=== PATIENT | female | born 1980 | race Hispanic/Latino ===

== ENCOUNTER 2021-11-18 15:57 | Day surgery (SDC) | payer OTHER ==
[2021-11-18 18:02] VITALS: BMI 25.6
[2021-11-18] MEDS ORDERED: hydrALAZINE 20 MG/ML VIAL SLOW IVP PRN (18:04)
[2021-11-18 18:13] LABS: Bilirubin Neg (Negative); Blood, Urine Negative (Negative); Clarity Clear (Clear); Glucose, Urine (Dipstick) Normal (Negative); Ketone, Urine 50 mg/dL (Negative); Leukocyte Negative (Negative); Nitrite Negative (Negative); Protein, Urine (Dipstick) Negative (Neg-Trace); Specific Gravity, Urine 1.015 (1.002-1.036); Urobilinogen Normal mg/dL (Less than 2)
[2021-11-18 18:23] LABS: Bacteria/HPF 1+ HPF (None Seen); Mucous/LPF 1+ LPF (<2+); RBC/HPF None Seen HPF (0-3); Squamous Epithelial 0-3 HPF (0-3); WBC/HPF 0-3 HPF (0-3)
== END 2021-11-18 19:10 | disposition home or self-care (01) ==
LOC: CSHLD/OP 15:57
PROVIDERS: ATTEND Obstetrics & Gynecology
DX: O99.891 Other specified diseases and conditions complicating pregnancy (principal); R35.0 Frequency of micturition; R30.0 Dysuria; R10.819 Abdominal tenderness, unspecified site; O09.522 Supervision of elderly multigravida, second trimester; O26.892 Other specified pregnancy related conditions, second trimester; L29.3 Anogenital pruritus, unspecified; Z3A.22 22 weeks gestation of pregnancy; Z88.0 Allergy status to penicillin
CPT/HCPCS: 81001; 87480; 87510; 87660

== ENCOUNTER 2022-02-25 20:16 | Inpatient (IN) | payer OTHER ==
[~2022-02-25 20:16] MED LIST: Bupivacaine/Epinephrine 0.25% 30 ML VIAL ONE; ePHEDrine Sulfate 50 MG/10 ML VIAL ONE
[2022-02-25 20:43] VITALS: BMI 28.7
[2022-02-25] MEDS ORDERED: hydrALAZINE 20 MG/ML VIAL SLOW IVP PRN ×4 (21:13→21:43)
[2022-02-25] MEDS ORDERED: Magnesium Sulfate 20 gm/500 ml 20 GM/500 ML BAG ONE (21:38)
[2022-02-25] MEDS ORDERED: Calcium Gluc 4.6 MEQ/10 ML (100 MG/ML) SLOW IVP PRN (21:43)
[2022-02-25] MEDS ORDERED: Lorazepam 2 MG/ML VIAL SLOW IVP PRN (21:43)
[2022-02-25] MEDS ORDERED: Promethazine HCl 25 MG/ML VIAL IM PRN (21:43)
[2022-02-25] MEDS ORDERED: Labetalol HCl 100 MG/20 ML VIAL SLOW IVP PRN ×2 (21:43)
[2022-02-25] MEDS ORDERED: Ondansetron PF 4 MG/2 ML Vial IVP PRN (21:43)
[2022-02-25] MEDS ORDERED: Ibuprofen 800 MG TAB PO PRN (21:43)
[2022-02-25] MEDS ORDERED: Butorphanol Tartrate 1 MG/ML VIAL SLOW IVP PRN (21:43)
[2022-02-25] MEDS ORDERED: Lidocaine 1% (PF) 30 ML VIAL SC PRN (21:43)
[2022-02-25] MEDS ORDERED: HYDROcodone/Acetaminophen 5/325 mg Tablet PO PRN ×2 (21:43)
[2022-02-25] MEDS ORDERED: Acetaminophen 500 MG TAB PO PRN (21:43)
[2022-02-25] MEDS ORDERED: hydrALAZINE 20 MG/ML VIAL ONE (21:56)
[2022-02-25] MEDS ORDERED: NS w/ Oxytocin 30 units 500 ML IV SCH ×2 (22:15)
[2022-02-25] MEDS ORDERED: Magnesium Sulfate 20 gm/500 ml 20 GM/500 ML BAG IVPB SCH (22:15)
[2022-02-25 22:30] LABS: Hemoglobin 11.7 g/dL (12.0-15.5); Mean Corpuscular HGB CONC 33.1 g/dL (32.0-36.0); Mean Corpuscular Hemoglobin 29.2 pg (27.0-33.0); Mean Corpuscular Volume 88.3 fl (81.6-98.3); Mean Platelet Volume 11.7 fl (7.4-10.4); Platelet Count 267 10x3/uL (150-450); RBC Distribution Width 12.9 % (11.5-14.5); Red Blood Cell (RBC) Count 4.01 10x6/uL (3.90-5.03); White Blood Cell (WBC) Count 10.4 10x3/uL (3.5-10.5)
[2022-02-25 22:43] LABS: ALT (SGPT) 12 U/L (8-55); AST (SGOT) 20 U/L (5-34); Albumin 3.5 g/dL (3.5-5.0); Alkaline Phosphatase 130 U/L (40-110); Anion Gap 15 mmol/L (10-20); BUN (Urea Nitrogen) 9 mg/dL (7.0-18.7); Bilirubin, Total 0.5 mg/dL (0.2-1.2); Calc. Creatinine Clearance 136 mL/min (70-130); Calcium 9.4 mg/dL (7.8-10.44); Carbon Dioxide 21 mmol/L (22-29); Chloride 105 mmol/L (98-107); Glucose 82 mg/dL (70-105); Protein, Total 6.5 g/dL (6.0-8.3); Sodium 137 mmol/L (136-145)
[2022-02-25 23:00] LABS: Hep B Surf Ag Non-Reactive S/CO (NonReactive); Syphilis Antibody Nonreactive (Nonreactive); Syphilis Antibody Index 0.06 S/CO (<1.00 Non-Reactive)
[2022-02-25 23:03] LABS: HBSAg Index 0.13 S/CO (0-0.99)
[2022-02-26] MEDS ORDERED: Dexamethasone 4 mg/ml Vial IM SCH (00:15)
[2022-02-26] MEDS: Betamet Acet/Betamet Na Ph 30 MG/5 ML VIAL IM SCH (01:01)
[2022-02-26] MEDS: CEFAZOLIN 1 GM in Sodium Chloride 0.9% 100 ML IVPB SCH ×2 (01:01→08:39)
[2022-02-26] MEDS: Misoprostol 100 MCG TAB VAG SCH ×2 (01:21→04:46)
[2022-02-26 02:39] LABS: SARS-CoV-2 NAA Rapid Test Not Detected (NotDetected)
[2022-02-26] MEDS ORDERED: Fentanyl 2 mcg/Bup 0.1% Cadd 100 ML ONE (03:08)
[2022-02-26] MEDS ORDERED: diphenhydrAMINE 50 MG/ML VIAL IVP PRN ×3 (03:58→19:23)
[2022-02-26] MEDS ORDERED: Ondansetron PF 4 MG/2 ML Vial IVP PRN ×3 (03:58→19:17)
[2022-02-26] MEDS ORDERED: Moisturizing Cream (Eucerin) 113 GM JAR TOP PRN (03:58)
[2022-02-26] MEDS ORDERED: Promethazine HCl 25 MG/ML VIAL IM PRN ×3 (03:58→19:23)
[2022-02-26] MEDS ORDERED: ePHEDrine Sulfate 50 MG/10 ML VIAL SLOW IVP PRN (03:58)
[2022-02-26] MEDS ORDERED: Naloxone HCl 0.4 mg/ml Vial IVP PRN ×2 (03:58)
[2022-02-26] MEDS ORDERED: Lactated Ringer's 500 ML IV PRN (03:58)
[2022-02-26] MEDS ORDERED: Fentanyl 2 mcg/Bupivacaine 0.1% Cassette 100 ML EPIDURAL SCH (04:00)
[2022-02-26] MEDS ORDERED: Communication Order-Pharmacy FS SCH ×3 (04:00→19:30)
[2022-02-26] MEDS: Acetaminophen 325 MG TAB PO PRN ×2 (08:49→13:49)
[2022-02-26] MEDS: Dextrose 5%-Lactated Ringers 1,000 ML IV SCH (09:21)
[2022-02-26] MEDS ORDERED: Misoprostol 200 MCG TAB ONE ×2 (15:53→15:56)
[2022-02-26] MEDS ORDERED: Methylergonovine 0.2 MG/ML VIAL ONE (15:54)
[2022-02-26] MEDS ORDERED: NS w/ Oxytocin 30 units 500 ML ONE (15:54)
[2022-02-26] MEDS ORDERED: Carboprost 250 MCG/ML AMP ONE ×2 (15:54→17:24)
[2022-02-26] MEDS ORDERED: Tranexamic Acid 1,000 MG/10 ML VIAL ONE ×2 (17:14→17:33)
[2022-02-26] MEDS ORDERED: Diphenoxylate HCl/Atropine Tablet PO SCH (17:30)
[2022-02-26] MEDS ORDERED: ceFAZolin 2 GM/Dextrose 50 ML IVPB ONE (17:33)
[2022-02-26] MEDS ORDERED: Succinylcholine 200 MG/10 ml SYRINGE FS ONE (17:45)
[2022-02-26] MEDS ORDERED: PROPOFOL 20 ML ONE (17:45)
[2022-02-26] MEDS ORDERED: Phenylephrine 40 MG/NS 250 ML 0 ML ONE (17:49)
[2022-02-26] MEDS ORDERED: Calcium Chloride 1 GM/10 ML Abboject SYRINGE ONE (17:49)
[2022-02-26] MEDS ORDERED: Midazolam HCl 2 mg/2 ml Vial ONE (17:56)
[2022-02-26] MEDS ORDERED: Rocuronium Bromide 10 MG/ML (10ML VIAL) ONE (18:05)
[2022-02-26 18:22] LABS: INR-International Normal Ratio 0.9; PTT 25.4 sec (22.0-33.0); Prothrombin Time 9.8 sec (9.5-12.1)
[2022-02-26] MEDS ORDERED: Fentanyl 100 MCG/2 ML VIAL ONE (18:34)
[2022-02-26 18:44] LABS: Hemoglobin 8.8 g/dL (12.0-15.5); Mean Corpuscular HGB CONC 33.2 g/dL (32.0-36.0); Mean Corpuscular Hemoglobin 29.7 pg (27.0-33.0); Mean Corpuscular Volume 89.5 fl (81.6-98.3); Platelet Count 223 10x3/uL (150-450); RBC Distribution Width 13.7 % (11.5-14.5); Red Blood Cell (RBC) Count 2.96 10x6/uL (3.90-5.03); White Blood Cell (WBC) Count 15.5 10x3/uL (3.5-10.5)
[2022-02-26 18:45] LABS: MDiff Complete? YES
[2022-02-26] MEDS ORDERED: Lanolin Ointment 7 GM TUBE TOP PRN (18:49)
[2022-02-26] MEDS ORDERED: Boostrix 0.5 ML (Tdap) VIAL IM ONE (18:49)
[2022-02-26] MEDS ORDERED: HYDROcodone/Acetaminophen 5/325 mg Tablet PO PRN ×2 (18:49)
[2022-02-26] MEDS ORDERED: hydrALAZINE 20 MG/ML VIAL SLOW IVP PRN (18:49)
[2022-02-26] MEDS ORDERED: Simethicone Chewable 80 MG TAB PO PRN (18:49)
[2022-02-26] MEDS ORDERED: Acetaminophen 325 MG TAB PO PRN (18:49)
[2022-02-26] MEDS ORDERED: Bisacodyl 10 MG SUPP PR PRN (18:49)
[2022-02-26] MEDS ORDERED: diphenhydrAMINE 25 MG CAP PO PRN ×3 (18:49→19:23)
[2022-02-26] MEDS ORDERED: SUGAMMADEX SODIUM 200 MG/2 ML VIAL ONE ×2 (18:50→18:58)
[2022-02-26 18:56] LABS: D-Dimer Test 9.93 mg/L FEU (0.19-0.50); INR-International Normal Ratio 0.9; PTT 25.1 sec (22.0-33.0); Prothrombin Time 9.7 sec (9.5-12.1)
[2022-02-26 19:09] LABS: Band 6 % (5-11); Eosinophils 1 % (0-10); Lymphocytes 3 % (21-51); Monocytes 3 % (0-10); Myelocyte 1 % (0-0); Neutrophil 86 % (42-75); Platelet Morphology Comment Appears Adequate
[2022-02-26] MEDS ORDERED: Morphine 4 MG/ML VIAL ONE (19:16)
[2022-02-26] MEDS ORDERED: Meperidine HCl/PF 25 MG/ML VIAL SLOW IVP PRN (19:17)
[2022-02-26] MEDS ORDERED: Naloxone HCl 0.4 mg/ml Vial IV PRN ×2 (19:17→19:23)
[2022-02-26] MEDS ORDERED: Zolpidem Tartrate 5 MG TAB PO PRN ×2 (19:17→19:23)
[2022-02-26] MEDS ORDERED: L&D-Morphine 4 MG/ML VIAL SLOW IVP PRN (19:17)
[2022-02-26] MEDS ORDERED: Ondansetron HCl/PF 4 MG/2 ML Vial IVP PRN (19:17)
[2022-02-26] MEDS ORDERED: diphenhydrAMINE 50 MG/ML VIAL IM PRN ×2 (19:17→19:23)
[2022-02-26] MEDS ORDERED: fentaNYL Citrate/PF 1,000 MCG in Sodium Chloride 0.9% 30 ML IV PRN (19:23)
[2022-02-26] MEDS ORDERED: Morphine 4 MG/ML VIAL SLOW IVP SCH (19:30)
[2022-02-26] MEDS ORDERED: Ferrous Sulfate 325 MG TAB PO SCH (21:00)
[2022-02-26] MEDS: Ondansetron PF 4 MG/2 ML Vial IVP PRN (21:31)
[2022-02-26] MEDS: Magnesium Sulfate 20 gm/500 ml 20 GM/500 ML BAG IVPB SCH (22:01)
[2022-02-26 23:11] LABS: Hemoglobin 10.6 g/dL (12.0-15.5); Mean Corpuscular HGB CONC 33.2 g/dL (32.0-36.0); Mean Corpuscular Hemoglobin 30.3 pg (27.0-33.0); Mean Corpuscular Volume 91.1 fl (81.6-98.3); Mean Platelet Volume 11.3 fl (7.4-10.4); Platelet Count 189 10x3/uL (150-450); RBC Distribution Width 14.1 % (11.5-14.5); White Blood Cell (WBC) Count 20.6 10x3/uL (3.5-10.5)
[2022-02-27] MEDS: Ondansetron PF 4 MG/2 ML Vial IVP PRN ×2 (03:14→07:40)
[2022-02-27 04:45] LABS: Hemoglobin 9.3 g/dL (12.0-15.5); Mean Corpuscular HGB CONC 34.2 g/dL (32.0-36.0); Mean Corpuscular Hemoglobin 29.6 pg (27.0-33.0); Mean Corpuscular Volume 86.6 fl (81.6-98.3); Mean Platelet Volume 11.1 fl (7.4-10.4); Platelet Count 179 10x3/uL (150-450); RBC Distribution Width 14.1 % (11.5-14.5); Red Blood Cell (RBC) Count 3.14 10x6/uL (3.90-5.03); White Blood Cell (WBC) Count 16.4 10x3/uL (3.5-10.5)
[2022-02-27] MEDS: Magnesium Sulfate 20 gm/500 ml 20 GM/500 ML BAG IVPB SCH (05:39)
[2022-02-27 06:52] LABS: Creatinine, Urine 32.69 mg/dL (47-110); Protein, Urine Random Quant Less than 10 mg/dL (1-14)
[2022-02-27] MEDS: Docusate 100 MG CAP PO SCH (07:23)
[2022-02-27] MEDS: CEFAZOLIN 1 GM in Sodium Chloride 0.9% 100 ML IVPB SCH (07:24)
[2022-02-27] MEDS: Ketorolac Tromethamine 30 MG/ML VIAL IVP SCH ×2 (07:57→16:01)
[2022-02-27] MEDS ORDERED: Boostrix 0.5 ML (Tdap) VIAL IM ONE (13:18)
[2022-02-27] MEDS ORDERED: hydrALAZINE 20 MG/ML VIAL SLOW IVP PRN (13:18)
[2022-02-27] MEDS ORDERED: HYDROcodone/Acetaminophen 5/325 mg Tablet PO PRN (13:18)
[2022-02-27] MEDS ORDERED: Labetalol HCl 100 MG/20 ML VIAL SLOW IVP PRN (13:22)
[2022-02-27] MEDS ORDERED: Ketorolac Tromethamine 30 MG/ML VIAL ONE (16:00)
[2022-02-27] MEDS: Ibuprofen 800 MG TAB PO SCH (21:51)
[2022-02-28] MEDS: Ibuprofen 800 MG TAB PO SCH ×5 (06:42→22:13)
[2022-02-28] MEDS ORDERED: Lanolin Ointment 7 GM TUBE TOP PRN (07:59)
[2022-02-28] MEDS: Misoprostol 100 MCG TAB VAG SCH (08:12)
[2022-02-28] MEDS: Betamet Acet/Betamet Na Ph 30 MG/5 ML VIAL IM SCH (08:14)
[2022-02-28] MEDS: Dextrose 5%-Lactated Ringers 1,000 ML IV SCH (08:22)
[2022-02-28] MEDS: CEFAZOLIN 1 GM in Sodium Chloride 0.9% 100 ML IVPB SCH (08:23)
[2022-02-28 08:24] LABS: Hemoglobin 9.2 g/dL (12.0-15.5); Mean Corpuscular Hemoglobin 29.7 pg (27.0-33.0); Mean Platelet Volume 10.4 fl (7.4-10.4); Platelet Count 229 10x3/uL (150-450); RBC Distribution Width 14.6 % (11.5-14.5)
[2022-02-28] MEDS: Docusate 100 MG CAP PO SCH (08:24)
[2022-02-28] MEDS: Prenatal Vitamin 1 TAB PO SCH (09:40)
[2022-02-28] MEDS: Acetaminophen 325 MG TAB PO PRN ×3 (09:40→18:44)
[2022-03-01] MEDS: Acetaminophen 325 MG TAB PO PRN ×2 (05:13→10:57)
[2022-03-01] MEDS: Ibuprofen 800 MG TAB PO SCH ×2 (06:13→13:40)
[2022-03-01] MEDS: Lactated Ringer's 1,000 ML IV SCH (07:50)
[2022-03-01 09:18] VITALS: BP 145/75; TEMP 98.6
[2022-03-01] MEDS: Prenatal Vitamin 1 TAB PO SCH (09:19)
== END 2022-03-01 13:40 | disposition home or self-care (01) | DRG 768 ==
LOC: CSHLD/OP 20:16 → CSHLD 22:25 → CSHPP 02-27 17:15
PROVIDERS: ADMIT Obstetrics & Gynecology; ATTEND Obstetrics & Gynecology
PROC: 10E0XZZ Delivery of Products of Conception, External Approach (ICD-10-PCS; principal; 2022-02-26)
PROC: 0W3R7ZZ Control Bleeding in Genitourinary Tract, Via Natural or Artificial Opening (ICD-10-PCS; 2022-02-26)
PROC: 0UT90ZL Resection of Uterus, Supracervical, Open Approach (ICD-10-PCS; 2022-02-26)
PROC: 0HQ9XZZ Repair Perineum Skin, External Approach (ICD-10-PCS; 2022-02-26)
PROC: 3E033VJ Introduction of Other Hormone into Peripheral Vein, Percutaneous Approach (ICD-10-PCS; 2022-02-26)
PROC: 3E0P7VZ Introduction of Hormone into Female Reproductive, Via Natural or Artificial Opening (ICD-10-PCS; 2022-02-26)
PROC: 30233K1 Transfusion of Nonautologous Frozen Plasma into Peripheral Vein, Percutaneous Approach (ICD-10-PCS; 2022-02-26)
PROC: 30233N1 Transfusion of Nonautologous Red Blood Cells into Peripheral Vein, Percutaneous Approach (ICD-10-PCS; 2022-02-26)
PROC: 6A550Z2 Pheresis of Platelets, Single (ICD-10-PCS; 2022-02-26)
DX: O14.14 Severe pre-eclampsia complicating childbirth (principal); Z37.0 Single live birth; O98.52 Other viral diseases complicating childbirth; O72.1 Other immediate postpartum hemorrhage; O70.0 First degree perineal laceration during delivery; D64.9 Anemia, unspecified; Z20.822 Contact with and (suspected) exposure to COVID-19; Z88.0 Allergy status to penicillin; Z3A.34 34 weeks gestation of pregnancy; F41.9 Anxiety disorder, unspecified; O99.344 Other mental disorders complicating childbirth; Z79.899 Other long term (current) drug therapy; B00.9 Herpesviral infection, unspecified; O90.81 Anemia of the puerperium
CPT/HCPCS: 36415; 36430; 51702; 74018; 80053; 82570; 84156; 85025; 85027; 85049; 85300; 85362; 85379; 85384; 85610; 85730; 86780; 86850; 86900; 86901; 87340; 88307; 99285; J0360; J0690; J0702; J1885; J2250; J2405; J2590; J2704; J3010; J3475; J3490; P9016; P9035; P9048; U0002